=== PATIENT | female | born 1975 | race Caucasian/White ===

== ENCOUNTER 2019-09-20 10:19 | Emergency (ER) | payer BC, OTHER ==
[2019-09-20] MEDS ORDERED: Aspirin Chewable 81 MG TAB ONE (10:20)
[2019-09-20 11:25] LABS: #Basophils 0.1 thou/uL (0.0-0.2); #Eosinphils 0.1 thou/uL (0.0-0.7); #Lymphocytes 2.2 thou/uL (1.20-3.40); #Monocytes 0.5 thou/uL (0.11-0.59); #Neutrophils 3.4 thou/uL (1.40-6.50); %Basophils 1.2 % (0.0-1.0); %Eosinophils 0.9 % (0.0-10.0); %Lymphocytes 34.8 % (21.0-51.0); %Monocytes 7.9 % (0.0-10.0); %Neutrophils 55.2 % (42.0-75.0); Hemoglobin 13.7 g/dL (12.0-16.0); Mean Corpuscular HGB CONC 33.3 g/dL (32.0-36.0); Mean Corpuscular Hemoglobin 32.5 pg (27.0-31.0); Mean Corpuscular Volume 97.7 fL (78.0-98.0); Platelet Count 225 thou/uL (130-400); RBC Distribution Width 11.4 % (11.5-14.5); Red Blood Cell (RBC) Count 4.21 mill/uL (4.20-5.40); White Blood Cell (WBC) Count 6.2 thou/uL (4.8-10.8)
[2019-09-20 11:41] LABS: ALT (SGPT) 28 U/L (8-55); AST (SGOT) 17 U/L (5-34); Albumin 4.3 g/dL (3.5-5.0); Alkaline Phosphatase 52 U/L (40-110); Anion Gap 11 mmol/L (10-20); BUN (Urea Nitrogen) 17 mg/dL (7.0-18.7); Bilirubin, Total 0.9 mg/dL (0.2-1.2); Calc. Creatinine Clearance 0 mL/min (70-130); Calcium 9.1 mg/dL (7.8-10.44); Carbon Dioxide 25 mmol/L (22-29); Chloride 107 mmol/L (98-107); Estimated GFR-MDRD 87; Glucose 95 mg/dL (70-105); Protein, Total 7.3 g/dL (6.0-8.3); Sodium 139 mmol/L (136-145)
--- NOTE | 2019-09-20 15:16 | RAD ---
PORTABLE CHEST: Date: 09/20/2019 An AP portable film at 1144 hours is compared with the 09/25/2017 study. The heart is normal in size and the lungs are clear. No infiltrate or effusion seen. There is no vasc ular congestion or edema. IMPRESSION: No acute thoracic finding. POS: HOME
== END 2019-09-20 12:20 | disposition home or self-care (01) ==
LOC: BURERS 10:19
DX: R07.9 Chest pain, unspecified (principal)
CPT/HCPCS: 71045; 80053; 83880; 84484; 85025; 93005